=== PATIENT | male | born 2000 | race Hispanic/Latino ===

== ENCOUNTER 2025-05-28 12:04 | Emergency (ER) | payer SELFPAY ==
[~2025-05-28] VITALS: Ht 175.3 cm; Wt 72.6 kg
[2025-05-28 12:59] VITALS: PULSE 69; RESP 16; TEMP 98.5; O2SAT 100
== END 2025-05-28 13:59 | disposition home or self-care (01) ==
LOC: ER 13:00
DX: Z48.02 Encounter for removal of sutures (principal)
CPT/HCPCS: 99282